=== PATIENT | male | born 1955 | race Caucasian/White ===

== ENCOUNTER → 2017-10-10 | Outpatient (CLI) | payer MEDICARE, OTHER ==
--- NOTE | 2017-10-10 15:17 | XR ---
EXAMINATION TYPE: XR chest 2V DATE OF EXAM: 10/10/2017 COMPARISON: NONE TECHNIQUE: PA and lateral views submitted. HISTORY: COPD FINDINGS: The lungs are clear and there is no pneumothorax, pleural effusion, or focal pneumonia. Hypertrophi c degenerative change of the spine. Diffuse osteopenia with arthropathy of the shoulders. Hyperinflat ion suggests COPD. IMPRESSION: 1. No acute process. Correlate for COPD.
== END | disposition home or self-care (01) ==
LOC: RADXRMAIN 14:28
PROVIDERS: ATTEND Family Medicine
DX: J44.9 Chronic obstructive pulmonary disease, unspecified (principal)
CPT/HCPCS: 71046

== ENCOUNTER → 2018-01-08 | Outpatient (CLI) | payer MEDICARE, OTHER ==
--- NOTE | 2018-01-08 12:55 | XR ---
EXAMINATION TYPE: XR ankle complete bilateral DATE OF EXAM: 01/08/2018 COMPARISON: EXAMINATION TYPE: XR ankle complete bilateral DATE OF EXAM: 01/08/2018 COMPARISON: NONE HISTORY: Pain FINDINGS: Three views of the ankle demonstrate the ankle mortise to be intact and symmetric. The joint spaces are preserved. The osseous structures are intact. Calcaneal spur noted bilaterally. IMPRESSION: 1. No definite acute fracture or dislocation, if symptoms persist follow-up study in 7 to 10 days wou ld be suggested.
== END | disposition home or self-care (01) ==
LOC: RADXRMAIN 12:21
PROVIDERS: ATTEND Family Medicine
DX: M25.579 Pain in unspecified ankle and joints of unspecified foot (principal)

== ENCOUNTER 2019-11-13 08:08 | Emergency (ER) | payer MEDICARE, OTHER ==
[~2019-11-13 08:08] MED LIST: EPINEPHrine 10 ML SYRINGE (0.1 MG/ML) ONE
[2019-11-13 08:25] VITALS: BP 0/0; PULSE 0; RESP 0
--- NOTE | 2019-11-13 08:28 | ED ---
General Adult HPI - General Stated complaint: unresponsive Time Seen by Provider: 11/13/19 08:20 Source: EMS Mode of arrival: EMS Limitations: altered mental status - History of Present Illness Initial comments: Dictation was produced using [employer] dictation software. please excuse any grammatical, word or spelling errors. This patient was cared for during a federal and state declared state of emergency secondary to Covid 19 Chief Complaint: 64-year-old male presents with cardiac arrest History of Present Illness: 64-year-old male presents today with cardiac arrest. Patient was found down by son after walking outside to obtain the male. 911 was called by son. Patient is evaluated by EMS According to EMS patient is a history of COPD. Patient underwent CPR for approximately 15 minutes. Patient had normal glucose. Coronary EMS patient not shockable rhythm. He was alternating between asystole and pulseless electrical activity. He is intubated failed and underwent several cycles of epinephrine. PHYSICAL EXAM: General Impression: Obtunded, intubated HEENT: Normocephalic atraumatic, cyanotic Cardiovascular: Pulseless Chest: Bilateral breath sounds Abdomen: Distended, mildly tympanitic Motor: No movement Neurological: Pupils dilated Skin: Mottled ED course: 64-year-old male presents with cardiac arrest. Patient underwent cardiopulmonary resuscitation for approximately 50 minutes. Patient immediately brought to resuscitation bay. Patient she was disconnected from [place] device to check for pulse. Patient was pulseless. CPR was continued. Plan care bedside ultrasound was obtained showing cardiac standstill. CPR was continued for couple cycles. Considering the duration of CPR and clinical presentation, further resuscitative measures not indicated at this time. Time of was called at 813am. Review of Systems ROS Statement: Those systems with pertinent positive or pertinent negative responses have been documented in the HPI. ROS Other: All systems not noted in ROS Statement are negative. Past Medical History Past Medical History: Unable to Obtain History of Any Multi-Drug Resistant Organisms: Unobtainable Past Surgical History: Unable to Obtain Smoking Status: Unknown if ever smoked Past Alcohol Use History: Unable to Obtain Past Drug Use History: Unable to Obtain General Exam Limitations: altered mental status Course Vital Signs 11/13/19 08:22 Pulse Rate 0 L Respiratory 0 L Rate Blood Pressure 0/0 Critical Care Time Critical Care Time: Yes Total Critical Care Time: 33 Disposition Clinical Impression: Cardiac arrest Disposition: Referrals: None,Stated [Primary Care Provider] - 1-2 days Time of Disposition: 08:28 Preliminary Cause of : cardiac arrest
== END 2019-11-13 12:50 | disposition expired ==
LOC: EC 08:08
DX: I46.9 Cardiac arrest, cause unspecified (principal)
CPT/HCPCS: 99291 ×2; 92950 ×2; J0171